=== PATIENT | male | born 1945 | race Caucasian/White ===

== ENCOUNTER 2017-03-09 07:42 | Outpatient (CLI) | payer MEDICARE, MEDICAID ==
[2017-03-09] MEDS ORDERED: Gadobenate Dimeglumine 529 MG/1 ML (20ML VIAL) ONE (16:36)
--- NOTE | 2017-03-09 17:08 | MRI ---
BRAIN MRI WITH AND WITHOUT CONTRAST: 03/09/17 CLINICAL HISTORY: History of left acoustic neuroma, followup. COMPARISON: 07/10/16. TECHNIQUE: Pre and postcontrast brain MRI and pre and postcontrast MRI IAC performed. FINDINGS: Redemonstration of left CP angle heterogeneously enhancing, partially cystic mass compatible with a vestibular schwannoma, grossly stable in morphology and size, measuring 22 mm. Redemonstration of ef facement of the 7th-8th left cranial nerve complex similar involvement left porus acusticus seen. No interval acute intracranial abnormality. Ventricular system is appropriate in size. 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 POS: [facility]
== END 2017-03-09 07:43 | disposition home or self-care (01) ==
LOC: MRI 07:42
PROVIDERS: ATTEND Radiology Radiation Oncology
DX: D33.3 Benign neoplasm of cranial nerves (principal)
CPT/HCPCS: 70553; A9579

== ENCOUNTER 2017-10-26 07:52 | Outpatient (CLI) | payer MEDICARE, MEDICAID ==
--- NOTE | 2017-10-26 11:23 | MRI ---
MRI BRAIN AND INTERNAL AUDITORY CANALS WITH AND WITHOUT CONTRAST: TECHNIQUE: Multiplanar, multisequential imaging of brain obtained. Postcontrast images obtained with administra tion of 20 cc MultiHance IV. Internal auditory canal protocol was followed. INDICATION: Restaging left vestibular schwannoma. COMPARISON: Comparison is made to exams of 03/09/17 and 07/10/16. FINDINGS: The enhancing mass at the left cerebellar pontine angle consistent with the known acoustic schwannoma is again noted. Measurements of this enhancing mass are stable when compared to the IAC exam of 06/25 11/08. On axial IAC images, this mass continues to measure approximately 1.6 cm greatest AP dimension by approximately 2.1 cm width. In the coronal plane, craniocaudal dimensions are again recorded at approximately 1.4 cm. No other abnormal enhancement is identified. No other evidence of mass. No significant white matter abnormality seen on FLAIR sequence. No interval change noted. IMPRESSION: Stable left vestibular schwannoma when compared to prior studies. POS: [facility]
[2017-10-26] MEDS ORDERED: Gadobenate Dimeglumine 529 MG/1 ML (20ML VIAL) ONE (14:59)
== END 2017-10-26 07:53 | disposition home or self-care (01) ==
LOC: MRI 07:52
PROVIDERS: ATTEND Radiology Radiation Oncology
DX: D33.3 Benign neoplasm of cranial nerves (principal)
CPT/HCPCS: 70553; 82565; A9579

== ENCOUNTER 2018-04-26 07:49 | Outpatient (CLI) | payer MEDICARE, MEDICAID ==
--- NOTE | 2018-04-26 10:58 | MRI ---
MRI BRAIN NONCONTRAST: Clinical history: Left acoustic neuroma, re-staging. Follow up. Comparison: 10-27-17 FINDINGS: The ventricular system is stable in size. No midline shift. No new, significant intraparenchymal abno rmalities. No evidence of acute territorial infarction. Redemonstration of heterogeneously enhancing extraaxial mass at the left Chest pain angle cistern, me asuring 1.6 cm in craniocaudal x 2 cm transverse x 1.5 cm AP which is grossly stable. Otherwise, no significant interval change. IMPRESSION: Stable left CP angle cistern mass with heterogeneous enhancement, most consistent with a vestibular S chwannoma. POS: [facility]
== END 2018-04-26 07:50 | disposition home or self-care (01) ==
LOC: MRI 07:49
PROVIDERS: ATTEND Radiology Radiation Oncology
DX: D33.3 Benign neoplasm of cranial nerves (principal); G93.9 Disorder of brain, unspecified
CPT/HCPCS: 70553; 82565

== ENCOUNTER 2018-10-27 12:48 | Outpatient (CLI) | payer MEDICARE, MEDICAID ==
--- NOTE | 2018-10-27 15:34 | MRI ---
MRI OF BRAIN WITH AND WITHOUT CONTRAST: INDICATION: Left acoustic neuroma. COMPARISON: 04/26/2018. FINDINGS: Ventricular system is normal in size. No evidence of intraaxial mass effect or midline shift. No in terval, significant signal abnormality is present. There is motion during the exam which does limit the evaluation. No acute territorial infarction. There is scattered paranasal sinus mucosal thickening and evidence of bilateral mastoid fluid, greater on the right. Redemonstration of an enhancing extraaxial mass centered at the left CP angle cistern, measuring 2 cm transverse x 1.4 cm AP, stable. Mild signal heterogeneity is demonstrated. Lateral extension of en hancement within the left porus acusticus along the course of the 7th/8th cranial nerve complex is a gain demonstrated. There are no enhancing intraaxial lesions. IMPRESSION: Stable left vestibular schwannoma. POS: [facility]
== END 2018-10-27 12:49 | disposition home or self-care (01) ==
LOC: MRI 12:48
PROVIDERS: ATTEND Radiology Radiation Oncology
DX: D33.3 Benign neoplasm of cranial nerves (principal)
CPT/HCPCS: 70553; 82565

== ENCOUNTER 2020-03-28 11:15 | Outpatient (CLI) | payer MEDICARE, MEDICAID ==
--- NOTE | 2020-03-28 12:56 | MRI ---
Brain MRI with and without contrast: 03/28/2020 COMPARISON: 10/27/2018 HISTORY: Reevaluate vestibular schwannoma on the left TECHNIQUE: Multiplanar multisequence MR imaging of the brain is obtained at within without contrast u sing an internal auditory canal protocol FINDINGS: The sagittal STIR imaging demonstrates no focal area of osseous marrow edema. The imaged paranasal sinuses and mastoid air cells appear well-aerated. There is a FLAIR hyperintense mass at the level of the cerebellopontine angle on the left extending i nto the left internal auditory canal. There are internal foci of increased T2 signal along the inferior/medial aspect of this lesion, which is otherwise T2 isointense. On the thin section axial T2 -weighted imaging this lesion measures approximately 1.7 x 2.1 cm, which does not appear changed when compared to the 10/27/2018 or the 04/26/2018 examination. Normal T2 signal intensity is seen within the cochlea, vestibule, and the semicircular canals on the left. The right cerebellopontine angle, internal auditory canal, cochlea, vestibule, and semicircular canal s demonstrate normal signal intensity. The diffusion weighted imaging demonstrates no evidence for acute infarction. The mass in the cerebellopontine angle demonstrates avid enhancement and on post contrast imaging becky sures 1.7 cm in craniocaudal dimension, stable. The whole brain postcontrast imaging demonstrates no new or additional areas of abnormal enhancement. IMPRESSION: Stable left vestibular schwannoma
[2020-03-28] MEDS ORDERED: Magnevist 469MG/ML 20 ML VIAL ONE (13:46)
== END 2020-03-28 11:16 | disposition home or self-care (01) ==
LOC: MRI 11:15
PROVIDERS: ATTEND Radiology Radiation Oncology
DX: D33.3 Benign neoplasm of cranial nerves (principal)
CPT/HCPCS: 70553; A9579

== ENCOUNTER 2021-05-10 07:10 | Day surgery (SDC) | payer MEDICARE, MEDICAID ==
[2021-05-10] MEDS ORDERED: ceFAZolin 2 GM/DEX 5% 100 ML BAG ONE (07:20)
[2021-05-10] MEDS ORDERED: Lidocaine 1% w/Epinephrine 1:100K 20 ML VIAL ONE (07:27)
[2021-05-10] MEDS ORDERED: Bupivacaine 0.25% 10 ML VIAL ONE ×2 (07:27→07:28)
[2021-05-10] MEDS ORDERED: Dexamethasone 20 MG/5 ML VIAL ONE (07:56)
[2021-05-10] MEDS ORDERED: Ketorolac Tromethamine 30 MG/ML VIAL ONE (07:56)
[2021-05-10] MEDS ORDERED: PROPOFOL 200 MG/20 ML VIAL ONE (07:56)
[2021-05-10] MEDS ORDERED: Ondansetron PF 4 MG/2 ML Vial ONE (07:56)
[2021-05-10] MEDS ORDERED: Fentanyl 100 MCG/2 ML VIAL ONE (08:03)
== END 2021-05-10 11:55 | disposition home or self-care (01) ==
LOC: SDC 07:10
PROVIDERS: ATTEND Surgery
PROC: 0YU60JZ Supplement Left Inguinal Region with Synthetic Substitute, Open Approach (ICD-10-PCS; principal; 2021-05-10)
DX: K40.90 Unilateral inguinal hernia, without obstruction or gangrene, not specified as recurrent (principal); E78.5 Hyperlipidemia, unspecified; I25.10 Atherosclerotic heart disease of native coronary artery without angina pectoris; I25.2 Old myocardial infarction; I10 Essential (primary) hypertension; K21.9 Gastro-esophageal reflux disease without esophagitis; M19.90 Unspecified osteoarthritis, unspecified site; F17.210 Nicotine dependence, cigarettes, uncomplicated; Z79.899 Other long term (current) drug therapy
CPT/HCPCS: 49505; C1781; J1100; J1885; J2405; J2704; J3010; S0020

== ENCOUNTER 2022-01-10 11:58 | Outpatient (CLI) | payer MEDICARE, MEDICAID ==
[2022-01-10 13:24] LABS: Hemoglobin 16.4 g/dL (13.5-17.5); Mean Corpuscular HGB CONC 34.7 g/dL (32.0-36.0); Mean Corpuscular Hemoglobin 31.7 pg (27.0-33.0); Mean Corpuscular Volume 91.3 fl (81.2-95.1); Mean Platelet Volume 10.6 fl (7.4-10.4); Platelet Count 220 10x3/uL (150-450); RBC Distribution Width 13.5 % (11.5-14.5); Red Blood Cell (RBC) Count 5.18 10x6/uL (4.32-5.72); White Blood Cell (WBC) Count 9.9 10x3/uL (3.5-10.5)
[2022-01-10 13:35] LABS: INR-International Normal Ratio 0.9; PTT 26.8 sec (22.0-33.0); Prothrombin Time 10.3 sec (9.5-12.1)
[2022-01-10 13:36] LABS: Bilirubin 1+ (Negative); Blood, Urine 50 (Negative); Clarity Slightly Cloudy (Clear); Glucose, Urine (Dipstick) Normal (Negative); Ketone, Urine 5 mg/dL (Negative); Leukocyte 25 (Negative); Nitrite Negative (Negative); Protein, Urine (Dipstick) 30 mg/dl (Neg-Trace); Specific Gravity, Urine 1.025 (1.002-1.036)
[2022-01-10 13:37] LABS: Anion Gap 16 mmol/L (10-20); BUN (Urea Nitrogen) 22 mg/dL (8.4-25.7); Calc. Creatinine Clearance 0 mL/min (70-130); Calcium 10.5 mg/dL (7.8-10.44); Carbon Dioxide 23 mmol/L (23-31); Chloride 105 mmol/L (98-107); Estimated GFR 67; Glucose 109 mg/dL (83-110); Potassium 4.5 mmol/L (3.5-5.1); Sodium 139 mmol/L (136-145)
[2022-01-10 13:51] LABS: Bacteria/HPF None Seen HPF (None Seen); Mucous/LPF 2+ LPF (<2+)
== END 2022-01-10 11:59 | disposition home or self-care (01) ==
LOC: LABBT 11:58
PROVIDERS: ATTEND Urology
DX: Z01.818 Encounter for other preprocedural examination (principal); C61 Malignant neoplasm of prostate; R31.29 Other microscopic hematuria; D49.4 Neoplasm of unspecified behavior of bladder; R32 Unspecified urinary incontinence; K40.90 Unilateral inguinal hernia, without obstruction or gangrene, not specified as recurrent; N30.00 Acute cystitis without hematuria; Z80.42 Family history of malignant neoplasm of prostate; Z87.891 Personal history of nicotine dependence; Z20.822 Contact with and (suspected) exposure to COVID-19
CPT/HCPCS: 80048; 81001; 85027; 85610; 85730; 86850; 86900; 86901; 87086; 87811; 93005; 93010